=== PATIENT | male | born 1990 | race Hispanic/Latino ===

== ENCOUNTER 2021-07-04 09:05 | Emergency (ER) | payer SELFPAY ==
[2021-07-04 09:31] LABS: Protime INR 1.18
[2021-07-04 09:32] LABS: Absolute Lymphocytes (CBC) 1.6 K/uL (0.7-4.9); Hematocrit 45.5 % (39.6-49.0); Lymphocytes % 21.8 % (15.3-44.8); MPV 8.5 fL (7.6-11.3); RBC Red Blood Cell Count 5.19 M/uL (4.33-5.43)
[2021-07-04 09:48] LABS: Albumin 4.2 g/dL (3.4-5.0); Bilirubin Direct 0.2 mg/dL (0-0.2); Bilirubin Total 0.8 mg/dL (0.2-1.0); Magnesium 2.4 mg/dL (1.8-2.4); Potassium 4.2 mmol/L (3.5-5.1); Protein, Total 7.7 g/dL (6.4-8.2); Troponin High Sensitivity 4.9 pg/mL (<58.9)
--- NOTE | 2021-07-04 10:24 | RAD REPORT ---
EXAM DESCRIPTION: RAD - Chest Single View - 07/04/2021 9:33 am CLINICAL HISTORY: CHEST PAIN Chest pain. COMPARISON: No comparisons FINDINGS: Portable technique limits examination quality. The lungs are mildly underinflated resulting in vascular crowding. The heart is normal in size. No di splaced fractures. IMPRESSION: No acute intrathoracic process suspected.
--- NOTE | 2021-07-04 11:03 | ER ---
Nurse's Notes [facility] Name: Arvind Rao Age: 30 yrs Sex: Male : 1990 Arrival Date: 07/04/2021 Time: 09:08 Bed 16 Private MD: Diagnosis: Chest pain, unspecified;Essential (primary) hypertension Presentation: 07/04 09:08 Chief complaint: EMS states: chest pain. Coronavirus screen: Client denies travel out cb of the [place] in the last 14 days. Client indicates they have traveled out of the [place] in the last 14 days. Ebola Screen: Patient negative for fever greater than or equal to 101.5 degrees Fahrenheit, and additional compatible Ebola Virus Disease symptoms Patient denies exposure to infectious person. Initial Sepsis Screen: Does the patient meet any 2 criteria? No. Patient's initial sepsis screen is negative. Risk Assessment: Do you want to hurt yourself or someone else? Patient reports no desire to harm self or others. 09:08 Method Of Arrival: EMS: [facility] cb5 09:08 Acuity: GERA 3 cb5 09:32 Initial Sepsis Screen: Does the patient have a suspected source of infection? No. cb5 Patient's initial sepsis screen is negative. Triage Assessment: 09:08 General: Appears uncomfortable, well groomed, Behavior is calm, cooperative, cb5 appropriate for age. Pain: Complains of pain in chest Pain currently is 4 out of 10 on a pain scale. - Immunization history:: Adult Immunizations up to date. - Social history:: Smoking status: . - Family history:: not pertinent. Screenin:08 Abuse screen: Denies threats or abuse. Denies injuries from another. Nutritional cb5 screening: No deficits noted. Tuberculosis screening: No symptoms or risk factors identified. Fall Risk None identified. Assessment: 09:08 General: Appears uncomfortable, well groomed, well developed, Behavior is calm, cb5 cooperative, appropriate for age. Pain: Complains of pain in chest Pain currently is 4 out of 10 on a pain scale. Neuro: No deficits noted. Level of Consciousness is awake, alert, obeys commands, Oriented to person, place, time, situation, Appropriate for age. Cardiovascular: No deficits noted. Respiratory: No deficits noted. GI: No deficits noted. : No deficits noted. EENT: No deficits noted. Derm: No deficits noted. Musculoskeletal: No deficits noted. 10:15 Reassessment: Patient and/or family updated on plan of care and expected duration. Pain cb5 level reassessed. Vital Signs: 09:08 BP 153 / 93; Pulse 83; Resp 16; Temp 98.4; Pulse Ox 98% ; Weight 69.4 kg; Height 5 ft. cb5 8 in. (172.72 cm); Pain 3/10; 09:30 BP 145 / 86; Pulse 80; Resp 16; Pulse Ox 98% ; Pain 0/10; cb5 11:15 BP 138 / 77; Pulse 77; Resp 16; Temp 98.6; Pulse Ox 98% ; Pain 0/10; cb5 09:08 Body Mass Index 23.26 (69.40 kg, 172.72 cm) cb5 ED Course: 09:08 Patient arrived in ED. ll1 09:08 Arm band placed on. EKG completed in triage. Results shown to MD. cb5 09:10 Ten Pitts MD is Attending Physician. margaret 09:21 Elissa Briscoe, RN is Primary Nurse. cb5 09:21 Basic Metabolic Panel Sent. cb5 09:22 CBC with Diff Sent. cb5 09:22 LFT's Sent. cb5 09:22 Magnesium Sent. cb5 09:22 NT PRO-BNP Sent. cb5 09:22 PT-INR Sent. cb5 09:22 Troponin HS Sent. cb5 09:28 Triage completed. cb5 09:32 Bed in low position. Call light in reach. Side rails up X2. cb5 09:33 XRAY Chest (1 view) In Process Unspecified. EDMS 10:21 Troponin High Sensitivity Sent. dh3 11:07 Anastacia Lugo MD is Referral Physician. margaret 11:07 Jesus Alberto Trevino MD is Referral Physician. margaret 11:30 IV discontinued. cb5 11:33 No provider procedures requiring assistance completed. cb5 Administered Medications: 09:26 Drug: NS 0.9% 1000 ml Route: IV; Rate: 125 ml/hr; Site: left antecubital; cb5 09:26 Drug: Aspirin Chewable Tablet 162 mg Route: PO; cb5 Outcome: 11:02 Discharge ordered by . margaret 11:30 Discharged to home ambulatory. cb5 11:30 Condition: stable 11:30 Discharge instructions given to patient. 11:34 Patient left the ED. cb5 Signatures: Dispatcher [employer] EDTen Juárez MD MD cha Herrera, Bruna 3 Violetta Hemphill, RN RN ll1 Elissa Briscoe RN RN cb5
--- NOTE | 2021-07-04 11:03 | EDPHYS ---
Physician Documentation [facility] Name: Arvind Rao Age: 30 yrs Sex: Male : 1990 Arrival Date: 07/04/2021 Time: 09:08 Bed 16 Private MD: ED Physician Ten Pitts HPI: 07/04 10:48 This 30 yrs old Male presents to ER via EMS with complaints of chest pain with [facility] movement at work. 10:48 This 30 yrs old Male presents to ER via EMS with complaints of chest pain at [facility] work. 10:48 The patient or guardian reports chest pain that is located primarily in the anterior margaret chest wall, bilaterally. The pain does not radiate. Associated signs and symptoms: The patient has no apparent associated signs or symptoms. The chest pain is described as aching. Duration: The patient or guardian reports multiple episodes, that wax and wane. Severity of pain: At its worst the pain was mild in the emergency department the pain is unchanged. The patient has not experienced similar symptoms in the past. - Immunization history:: Adult Immunizations up to date. - Social history:: Smoking status: . - Family history:: not pertinent. ROS: 10:48 Constitutional: Negative for fever, chills, and weight loss, Eyes: Negative for injury, margaret pain, redness, and discharge, ENT: Negative for injury, pain, and discharge, Neck: Negative for injury, pain, and swelling, Respiratory: Negative for shortness of breath, cough, wheezing, and pleuritic chest pain, Abdomen/GI: Negative for abdominal pain, nausea, vomiting, diarrhea, and constipation, Back: Negative for injury and pain, : Negative for injury, bleeding, discharge, and swelling, MS/Extremity: Negative for injury and deformity, Skin: Negative for injury, rash, and discoloration, Neuro: Negative for headache, weakness, numbness, tingling, and seizure, Psych: Negative for depression, anxiety, suicide ideation, homicidal ideation, and hallucinations, Allergy/Immunology: Negative for hives, rash, and allergies, Endocrine: Negative for neck swelling, polydipsia, polyuria, polyphagia, and marked weight changes, Hematologic/Lymphatic: Negative for swollen nodes, abnormal bleeding, and unusual bruising. 10:48 Cardiovascular: Positive for chest pain. Exam: 10:48 Constitutional: This is a well developed, well nourished patient who is awake, alert, margaret and in no acute distress. Head/Face: Normocephalic, atraumatic. Eyes: Pupils equal round and reactive to light, extra-ocular motions intact. Lids and lashes normal. Conjunctiva and sclera are non-icteric and not injected. Cornea within normal limits. Periorbital areas with no swelling, redness, or edema. ENT: Nares patent. No nasal discharge, no septal abnormalities noted. Tympanic membranes are normal and external auditory canals are clear. Oropharynx with no redness, swelling, or masses, exudates, or evidence of obstruction, uvula midline. Mucous membranes moist. Neck: Trachea midline, no thyromegaly or masses palpated, and no cervical lymphadenopathy. Supple, full range of motion without nuchal rigidity, or vertebral point tenderness. No Meningismus. Cardiovascular: Regular rate and rhythm with a normal S1 and S2. No gallops, murmurs, or rubs. Normal PMI, no JVD. No pulse deficits. Respiratory: Lungs have equal breath sounds bilaterally, clear to auscultation and percussion. No rales, rhonchi or wheezes noted. No increased work of breathing, no retractions or nasal flaring. Abdomen/GI: Soft, non-tender, with normal bowel sounds. No distension or tympany. No guarding or rebound. No evidence of tenderness throughout. Back: No spinal tenderness. No costovertebral tenderness. Full range of motion. Male : Normal genitalia with no discharge or lesions. Skin: Warm, dry with normal turgor. Normal color with no rashes, no lesions, and no evidence of cellulitis. MS/ Extremity: Pulses equal, no cyanosis. Neurovascular intact. Full, normal range of motion. Neuro: Awake and alert, GCS 15, oriented to person, place, time, and situation. Cranial nerves II-XII grossly intact. Motor strength 5/5 in all extremities. Sensory grossly intact. Cerebellar exam normal. Normal gait. Psych: Awake, alert, with orientation to person, place and time. Behavior, mood, and affect are within normal limits. 10:48 Chest/axilla: Inspection: normal, Palpation: tenderness, that is mild, of the right clavicle, anterior aspect of right upper chest, anterior aspect of left upper chest, mid-sternal area, right breast and left breast. 10:48 ECG was reviewed by the Attending Physician. 10:48 Musculoskeletal/extremity: ROM: no acute changes, Circulation is intact in all extremities. Sensation intact. Compartment Syndrome exam of affected extremity: is normal. DVT Exam: No signs of deep vein thrombosis. no pain, no swelling, no tenderness, negative Homans' sign noted on exam, no appreciated bluish discoloration, no erythema, no increased warmth. 11:08 ECG was reviewed by the Attending Physician. margaret Vital Signs: 09:08 BP 153 / 93; Pulse 83; Resp 16; Temp 98.4; Pulse Ox 98% ; Weight 69.4 kg; Height 5 ft. cb5 8 in. (172.72 cm); Pain 3/10; 09:30 BP 145 / 86; Pulse 80; Resp 16; Pulse Ox 98% ; Pain 0/10; cb5 11:15 BP 138 / 77; Pulse 77; Resp 16; Temp 98.6; Pulse Ox 98% ; Pain 0/10; cb5 09:08 Body Mass Index 23.26 (69.40 kg, 172.72 cm) cb5 MDM: 09:10 Patient medically screened. margaret 10:58 Differential diagnosis: abnormal EKG, acute myocardial infarction, chest wall pain, margaret herpes zoster, pancreatitis, stable angina, unstable angina. HEART Score: ECG: Normal (0), Age: < or = 45 years (0), Risk Factors: No Risk Factors Known (0), Troponin: < or = 1 x Normal Limit (0), Total Score = 0. The patient's deep vein thrombosis risk score was calculated as follows: Total Score: 0. This patient was found to be at low risk for a deep vein thrombosis by using the Well's assessment criteria. The patient's pulmonary embolism risk score was calculated as follows: Total Score: 0-2 points. This patient was found to be at low risk for a pulmonary embolism by using the Well's assessment criteria. CASSANDRA Risk Score: TOTAL SCORE = 0. Data reviewed: vital signs, nurses notes, lab test result(s), EKG, radiologic studies, plain films. Data interpreted: wedding photographer: rate is 98 beats/min, rhythm is regular, Pulse oximetry: on room air is 98 %. Test interpretation: by ED physician or midlevel provider: ECG, plain radiologic studies. Counseling: I had a detailed discussion with the patient and/or guardian regarding: the historical points, exam findings, and any diagnostic results supporting the discharge/admit diagnosis, the presence of at least one elevated blood pressure reading (>120/80) during this emergency department visit, lab results, radiology results, the need for outpatient follow up, for definitive care, a cash accounting clerk, a family practitioner. 07/04 09:12 Order name: Basic Metabolic Panel; Complete Time: 10:10 [facility] 07/04 09:12 Order name: CBC with Diff; Complete Time: 10:10 [facility] 07/04 09:12 Order name: LFT's; Complete Time: 10:10 [facility] 07/04 09:12 Order name: Magnesium; Complete Time: 10:10 [facility] 07/04 09:12 Order name: NT PRO-BNP; Complete Time: 10:10 [facility] 07/04 09:12 Order name: PT-INR; Complete Time: 10:10 [facility] 07/04 09:12 Order name: Troponin HS; Complete Time: 10:10 [facility] 07/04 09:12 Order name: XRAY Chest (1 view); Complete Time: 10:45 [facility] 07/04 09:12 Order name: EKG; Complete Time: 09:13 [facility] 07/04 10:10 Order name: Troponin High Sensitivity [facility] 07/04 10:11 Order name: Troponin High Sensitivity; Complete Time: 10:45 EDMS 07/04 09:12 Order name: Cardiac monitoring; Complete Time: 09:21 [facility] 07/04 09:12 Order name: EKG - Nurse/Tech; Complete Time: 09:21 [facility] 07/04 09:12 Order name: IV Saline Lock [facility] 07/04 09:12 Order name: Labs collected and sent; Complete Time: 09:21 [facility] 07/04 09:12 Order name: O2 Per Protocol; Complete Time: 09:21 [facility] 07/04 09:12 Order name: O2 Sat Monitoring; Complete Time: 09:21 [facility] 07/04 10:17 Order name: EKG; Complete Time: 10:18 [facility] 07/04 10:17 Order name: EKG - Nurse/Tech; Complete Time: 11:28 margaret EC:48 Rate is 65 beats/min. Rhythm is regular. QRS [place] is Normal. MS interval is normal. QRS margaret interval is normal. QT interval is normal. No Q waves. T waves are Normal. No ST changes noted. Clinical impression: Normal ECG and No evidence of ischemia. Interpreted by me. Reviewed by me. 11:08 Rate is 63 beats/min. Rhythm is regular. QRS [place] is Normal. MS interval is normal. QRS margaret interval is normal. QT interval is normal. No Q waves. T waves are Normal. No ST changes noted. Clinical impression: Normal ECG and No evidence of ischemia. Interpreted by me. Reviewed by me. Administered Medications: 09:26 Drug: NS 0.9% 1000 ml Route: IV; Rate: 125 ml/hr; Site: left antecubital; cb5 09:26 Drug: Aspirin Chewable Tablet 162 mg Route: PO; cb5 Disposition Summary: 07/04/21 11:02 Discharge Ordered Location: Home margaret Problem: new margaret Symptoms: have improved margaret Condition: Stable margaret Diagnosis - Chest pain, unspecified margaret - Essential (primary) hypertension margaret Followup: margaret - With: Private Physician - When: 2 - 3 days - Reason: Recheck today's complaints, Continuance of care, Re-evaluation by your physician Followup: margaret - With: Anastacia Lugo MD - When: 2 - 3 days - Reason: Recheck today's complaints, Re-evaluation by your physician Followup: margaret - With: Jesus Alberto Trevino MD - When: 2 - 3 days - Reason: Recheck today's complaints, Continuance of care, Re-evaluation by your physician Discharge Instructions: - Discharge Summary Sheet margaret - Nonspecific Chest Pain, Adult margaret - Chest Wall Pain margaret - Chest Wall Pain, [id number] margaret - Nonspecific Chest Pain, Adult, [id number] margaret - Hypertension, Adult margaret - Aspirin and Your Heart margaret - Hypertension, Adult, [id number] margaret Forms: - Medication Reconciliation Form margaret - Thank You Letter margaret - Antibiotic Education margaret - Prescription Opioid Use margaret Prescriptions: - Pepcid 20 mg Oral Tablet - take 1 tablet by ORAL route every 12 hours for 21 days; 42 tablet; Refills: 0, margaret Product Selection Permitted Signatures: Dispatcher [employer] Ten Lozano MD MD cha Boman, Colleen, RN RN cb5
[2021-07-04 11:39] VITALS: O2SAT 98
[2021-07-04 11:40] VITALS: BP 138/77; TEMP 98.6
--- NOTE | 2021-07-05 11:35 | EKG ---
Test Date: 2021-07-04 Test Time: 09:19:31 Resident Services Supervisor: TRINY MEASUREMENT RESULTS: Intervals: Rate: 65 NM: 156 QRSD: 88 QT: 378 QTc: 393 [place]: P: 42 NM: 156 QRS: 70 T: 30 INTERPRETIVE STATEMENTS: Normal sinus rhythm Normal ECG No previous ECG available for comparison Electronically Signed On 07-05-21 11:29:29 SWINE NUTRITIONIST by Jesus Alberto Trevino
--- NOTE | 2021-07-05 11:35 | EKG ---
Test Date: 2021-07-04 Test Time: 11:04:38 Opener Verifier [employer]: ANANDA MEASUREMENT RESULTS: Intervals: Rate: 63 AK: 152 QRSD: 90 QT: 408 QTc: 417 [place]: P: 46 AK: 152 QRS: 92 T: 38 INTERPRETIVE STATEMENTS: Normal sinus rhythm Rightward axis Borderline ECG No previous ECG available for comparison Electronically Signed On 07-05-21 11:29:25 HIGH RIGGER by Jesus Alberto Trevino
== END 2021-07-04 11:34 | disposition home or self-care (01) ==
LOC: ER 09:05
DX: I10 Essential (primary) hypertension (principal)
CPT/HCPCS: 36415; 71045; 80048; 80076; 83735; 83880; 84484; 85025; 85610; 93005; 99284